=== PATIENT | female | born 1945 | race Caucasian/White ===

== ENCOUNTER 2016-04-16 12:57 | Outpatient (CLI) | payer MEDICARE, BC | END 2016-04-16 12:58 | disposition home or self-care (01) | DX: R00.2 Palpitations (principal) ==

== ENCOUNTER 2016-06-09 13:21 | Outpatient (CLI) | payer MEDICARE, BC | END 2016-06-09 13:22 | disposition home or self-care (01) | DX: R07.9 Chest pain, unspecified (principal); R93.1 Abnormal findings on diagnostic imaging of heart and coronary circulation | CPT/HCPCS: 78452; 93017; A9500 ==

== ENCOUNTER 2016-08-05 15:44 | Outpatient (CLI) | payer MEDICARE, BC | END 2016-08-05 15:45 | disposition home or self-care (01) | DX: M19.072 Primary osteoarthritis, left ankle and foot (principal); M19.071 Primary osteoarthritis, right ankle and foot ==

== ENCOUNTER 2016-08-26 08:11 | Outpatient (CLI) | payer MEDICARE, BC ==
[2016-08-26 09:08] LABS: CHOL/HDL RATIO 3.2 (<4.4); CHOLESTEROL 144 mg/dL; HDL CHOLESTEROL 45 mg/dL; LDL/HDL RATIO 1.8 (<4.4); TRIGLYCERIDES 91 mg/dL; VLDL CHOLESTEROL 18 mg/dL
== END 2016-08-26 08:12 | disposition home or self-care (01) ==
LOC: LAB 08:11
PROVIDERS: ATTEND Internal Medicine
DX: E78.5 Hyperlipidemia, unspecified (principal)
CPT/HCPCS: 36415; 80061; 84450; 84460

== ENCOUNTER 2017-02-27 11:44 | Outpatient (CLI) | payer MEDICARE, BC ==
--- NOTE | 2017-02-27 14:29 | XRAY Report ---
LEFT HIP AND PELVIS: 02/27/2017 CLINICAL INDICATION: Pain. FINDINGS: Frontal view of the hips and pelvis and frogleg lateral view of the left hip demonstrate m ild left hip osteoarthritis. A right hip replacement is noted in place. Degenerative changes are seen in the sacroiliac joints and there is ossific fusion of the transverse processes of L5 to the iliac crest. IMPRESSION: MILD LEFT HIP OSTEOARTHRITIS. JOB #: [id number] EXT JOB #:[id number]
== END 2017-02-27 11:45 | disposition home or self-care (01) ==
LOC: DI 11:44
PROVIDERS: ATTEND Internal Medicine
DX: M16.12 Unilateral primary osteoarthritis, left hip (principal)

== ENCOUNTER 2017-04-12 15:08 | Outpatient (CLI) | payer MEDICARE, BC ==
--- NOTE | 2017-04-14 10:25 | Mammography Report ---
DATE OF SERVICE: 04/12/2017 DIGITAL SCREENING MAMMOGRAM: 04/12/2017 CLINICAL INDICATION: A 71-year-old with history of benign biopsy, for screening. COMPARISON: 02/2016, 01/2015, 01/2014, 12/2013, 10/2012, 09/2010. TECHNIQUE: Routine CC and MLO projections were obtained of the breasts. FINDINGS: Parenchymal tissue within the breasts is predominantly fatty replaced. There are no dominant masses, suspicious microcalcifications, or secondary signs of malignancy. In comparison to the previous studies, there are no significant changes. IMPRESSION: NO MAMMOGRAPHIC EVIDENCE OF MALIGNANCY. NO SIGNIFICANT INTERVAL CHANGES. RECOMMENDATION: Screening mammography is recommended annually. BIRADS category 1 - negative. STANDARD QUALIFYING STATEMENTS: 1. This examination was reviewed with the aid of Computed-Aided Detection (CAD). 2. A negative or benign imaging report should not delay biopsy if clinically suspicious findings are present. Consider surgical consultation if warranted. More than 5% of cancers are not identified by imaging. 3. Dense breasts may obscure an underlying neoplasm. TD: 04/14/2017 11:24
== END 2017-04-12 15:09 | disposition home or self-care (01) ==
LOC: DI 15:08
PROVIDERS: ATTEND Internal Medicine
DX: Z12.31 Encounter for screening mammogram for malignant neoplasm of breast (principal)
CPT/HCPCS: 77067

== ENCOUNTER 2018-06-22 07:59 | Outpatient (CLI) | payer MEDICARE, BC ==
--- NOTE | 2018-06-22 10:47 | Mammography Report ---
Reason: SCREENING MAMMO Procedure Date: 06/22/2018 Accession Number: [id number] / [id number] Procedure: LAKESHIA - Screening Mammo w/Tano CPT Code: FULL RESULT: EXAM: Screening Mammo w/Tano DATE: 06/22/2018 8:35 AM CLINICAL HISTORY: Routine screening. No reported personal history of breast cancer. Family history breast cancer in an aunt in her 80s. TECHNIQUE: Bilateral CC and MLO views were obtained. COMPARISON: 04/12/2017 through 01/15/2015 FINDINGS: The breasts demonstrate scattered fibroglandular densities bilaterally. Bilateral breasts: There are no suspicious masses, calcifications or areas of distortion. IMPRESSION: Negative examination RECOMMENDATION: Routine annual screening unless otherwise clinically indicated. BI-RADS CATEGORY 1: Negative STANDARD QUALIFYING STATEMENTS: 1. This examination was not reviewed with the aid of Computer-Aided Detection (CAD). 2. A negative or benign imaging report should not preclude biopsy if clinically suspicious findings are present. 3. Dense breasts may obscure an underlying neoplasm. 4. This examination was reviewed with the aid of 3D breast imaging (tomosynthesis).
== END 2018-06-22 08:00 | disposition home or self-care (01) ==
LOC: DI 07:59
PROVIDERS: ATTEND Internal Medicine
DX: Z12.31 Encounter for screening mammogram for malignant neoplasm of breast (principal); Z80.3 Family history of malignant neoplasm of breast
CPT/HCPCS: 77063; 77067

== ENCOUNTER 2019-05-14 07:31 | Outpatient (CLI) | payer MEDICARE, BC ==
[2019-05-14 08:12] LABS: BASOPHILS # (AUTO) 0.1 10^3/uL (0.0-0.1); BASOPHILS % (AUTO) 0.9 %; EOSINOPHILS # (AUTO) 0.2 10^3/uL (0.0-0.7); EOSINOPHILS % (AUTO) 3.8 %; HGB - HEMOGLOBIN 14.3 g/dL (12.0-16.0); LYMPHOCYTES # (AUTO) 1.7 10^3/uL (1.5-3.5); LYMPHOCYTES % (AUTO) 27.3 %; MEAN CORPUSCULAR HEMOGLOBIN 29.7 pg (27.0-31.0); MEAN CORPUSCULAR HGB CONC 31.8 g/dL (32.0-36.0); MEAN CORPUSCULAR VOLUME 93.2 fL (81.0-99.0); MEAN PLATELET VOLUME 9.8 fL (7.9-10.8); MONOCYTES # (AUTO) 0.6 10^3/uL (0.0-1.0); MONOCYTES % (AUTO) 9.4 %; NEUTROPHILS # (AUTO) 3.7 10^3/uL (1.5-6.6); NEUTROPHILS % (AUTO) 58.3 %; PLT - PLATELET COUNT 299 10^3/uL (130-450); RED BLOOD COUNT 4.82 10^6/uL (4.20-5.40); RED CELL DISTRIBUTION WIDTH 12.9 % (12.0-15.0); WHITE BLOOD COUNT 6.4 x10^3/uL (4.8-10.8)
[2019-05-14 08:20] LABS: ALBUMIN/GLOBULIN RATIO 1.2 (1.0-2.2); ALKALINE PHOSPHATASE 58 IU/L (42-121); ALT ALANINE AMINOTRANSFERASE 30 IU/L (10-60); AST ASPARTATE AMINOTRANSFERASE 23 IU/L (10-42); BILIRUBIN,TOTAL 0.6 mg/dL (0.2-1.0); BUN - BLOOD UREA NITROGEN 15 mg/dL (6-20); CALCIUM 9.4 mg/dL (8.5-10.3); CARBON DIOXIDE - CO2 25 mmol/L (21-32); CHLORIDE 102 mmol/L (101-111); CHOLESTEROL 160 mg/dL; CREATININE 0.7 mg/dL (0.4-1.0); GFR - MDRD 82 (>89); GLUCOSE 107 mg/dL (70-100); HDL CHOLESTEROL 54 mg/dL; LDL CHOLESTEROL,CALCULATED 89 mg/dL; LDL/HDL RATIO 1.6 (<4.4); SODIUM 138 mmol/L (135-145); TOTAL PROTEIN 7.3 g/dL (6.7-8.2); VLDL CHOLESTEROL 17 mg/dL
[2019-05-14 08:59] LABS: T4 (THYROXINE) 6.87 ug/dL (6.09-12.23)
[2019-05-14 09:09] LABS: TOTAL T3 1.03 ng/mL (0.87-1.78)
== END 2019-05-14 07:32 | disposition home or self-care (01) ==
LOC: LAB 07:31
PROVIDERS: ATTEND Nurse Practitioner
DX: Z78.0 Asymptomatic menopausal state (principal); Z90.710 Acquired absence of both cervix and uterus; Z79.01 Long term (current) use of anticoagulants; I10 Essential (primary) hypertension; E78.5 Hyperlipidemia, unspecified; I48.91 Unspecified atrial fibrillation; J45.909 Unspecified asthma, uncomplicated; R53.83 Other fatigue; L65.9 Nonscarring hair loss, unspecified
CPT/HCPCS: 36415; 80053; 80061; 82306; 83721; 84436; 84443; 84480; 85025

== ENCOUNTER 2019-10-25 12:53 | Day surgery (SDC) | payer MEDICARE, BC ==
[2019-10-25] MEDS ORDERED: fentaNYL 250 MCG/5 ML VIAL IVP ONE ×2 (12:54)
[2019-10-25] MEDS ORDERED: MIDAZOLAM 2 MG/2 ML VIAL IVP ONE ×2 (12:54)
[2019-10-25] MEDS ORDERED: LACTATED RINGERS 1,000 ML IV ONE (13:02)
[2019-10-25 16:42] VITALS: BP 132/69
== END 2019-10-25 12:54 | disposition home or self-care (01) ==
LOC: SDS 12:53
PROVIDERS: ATTEND Surgery
PROC: 0DBL8ZZ Excision of Transverse Colon, Via Natural or Artificial Opening Endoscopic (ICD-10-PCS; principal; 2019-10-25 13:45)
DX: Z12.11 Encounter for screening for malignant neoplasm of colon (principal); D12.3 Benign neoplasm of transverse colon; K57.30 Diverticulosis of large intestine without perforation or abscess without bleeding; I10 Essential (primary) hypertension; G47.30 Sleep apnea, unspecified
CPT/HCPCS: 45385; J3010; J7120

== ENCOUNTER 2019-12-10 13:11 | Outpatient (CLI) | payer MEDICARE, BC ==
--- NOTE | 2019-12-10 13:14 | XRAY Report ---
PROCEDURE: Tib/Fib LT INDICATIONS: LEFT LEG PAIN TECHNIQUE: 2 views of the tibia and fibula were acquired. COMPARISON: None. FINDINGS: Bones: No acute fractures or dislocations. No suspicious bony lesions. Soft tissues: No suspicious soft tissue calcifications or masses. Serpiginous soft tissue densities in the superficial left lower leg likely represent varicosities. No radiographic abnormalities under lying the skin BB marker over the anterior mid tibia. IMPRESSION: Left tibia/fibula without acute radiographic abnormalities. Reviewed by: Parminder Espinoza MD on 12/10/2019 1:12 PM PDT Approved by: Parminder Espinoza MD on 12/10/2019 1:12 PM PDT Station ID: [id number]
== END 2019-12-10 23:59 | disposition home or self-care (01) ==
LOC: DI.WCP 13:11
PROVIDERS: ATTEND Nurse Practitioner
DX: M79.605 Pain in left leg (principal)

== ENCOUNTER 2020-05-29 11:04 | Outpatient (CLI) | payer MEDICARE, BC ==
--- NOTE | 2020-05-29 17:00 | DEXA Report ---
PROCEDURE: Dexa Spine and/or Hip INDICATIONS: POST MENOPAUSAL TECHNIQUE: Dual energy x-ray absorptiometry (DXA) was performed on a [employer] System. Regions measur ed are the AP Spine, femoral neck, and if needed forearm. COMPARISON: Dexa, 02/19/2016.. FINDINGS: Lumbar Spine: Bone Mineral Density 1.657 g/cm/cm,T score 4.0. Left forearm: Bone Mineral Density 0.678 g/cm/cm, T score 0.1. (T score greater or equal to -1.0: NORMAL) (T score from -1.1 to -2.4: OSTEOPENIA) (T score less than or equal to -2.5 to: OSTEOPOROSIS) Impression: 1. Based on WHO criteria, the patient bone mineral density is normal. 2. Increased T score and lumbar spine may be partially due to degenerative changes. Recommend radiogr aphic correlation. Patients with diagnosis of osteoporosis or osteopenia should have regular bone mineral density assess ment. For those eligible for Medicare, routine testing is allowed once every 2 years. Testing frequ ency can be increased for patients who have rapidly progressing disease or for those who are receivin g medical therapy to restore bone mass. Reviewed by: Cesar Faulkner MD on 05/29/2020 4:59 PM PST Approved by: Cesar Faulkner MD on 05/29/2020 4:59 PM PST Station ID: [id number]
== END 2020-05-29 11:05 | disposition home or self-care (01) ==
LOC: DI 11:04
PROVIDERS: ATTEND Nurse Practitioner
DX: Z78.0 Asymptomatic menopausal state (principal)

== ENCOUNTER 2020-07-24 08:32 | Outpatient (CLI) | payer MEDICARE, BC ==
--- NOTE | 2020-07-24 09:36 | Mammography Report ---
BILATERAL DIGITAL SCREENING MAMMOGRAM 3D/2D: 07/24/2020 CLINICAL: Routine screening. Comparison is made to exams dated: 06/22/2018 mammogram, 04/12/2017 mammogram, 02/19/2016 mammogram, 1 mammogram - [facility], and 01/16/[address] - [facility]. There are scattered fibroglandular elements in both breasts. There is a new 5 mm oval high density asymmetry in the left breast at 2 o'clock posterior depth. No other significant masses, calcifications, or other findings are seen in either breast. IMPRESSION: INCOMPLETE: NEEDS ADDITIONAL IMAGING EVALUATION The new 5 mm oval high density asymmetry in the left breast is indeterminate. Additional views with possible ultrasound are recommended. This exam was interpreted at Station ID: [id number]. NOTE: For mammograms, a report in lay terms will be sent to the patient. Approximately 15% of breast malignancies will not be visualized mammographically. In the management of a palpable breast mass, a negative mammogram must not discourage biopsy of a clinically suspicious lesion. Electronically Signed By: Myranda tom/aruna:07/24/2020 09:25:56 ACR BI-RADS Category 0: Incomplete 3340F PARENCHYMAL PATTERN: (A) - The breast(s) demonstrate(s) scattered fibroglandular densities. BI-RADS CATEGORY: (0) - 0 Mammo and [place] [id number] Immediate follow-up LATERALITY: (B)
== END 2020-07-24 08:33 | disposition home or self-care (01) ==
LOC: DI 08:32
PROVIDERS: ATTEND Physician Assistant Medical
DX: Z12.31 Encounter for screening mammogram for malignant neoplasm of breast (principal); R92.8 Other abnormal and inconclusive findings on diagnostic imaging of breast

== ENCOUNTER 2020-08-07 09:03 | Emergency (ER) | payer MEDICARE, BC ==
--- NOTE | 2020-08-07 09:13 | ED Physician Documentation ---
PD HPI HEENT - Stated complaint Stated Complaint: NOSE BLEED - Chief complaint Chief Complaint: Heent - History obtained from History obtained from: Patient - History of Present Illness Timing - onset: How many hours ago (2), Today Timing - duration: Hours (2) Timing - details: Abrupt onset, Still present, Waxing and waning (improved with pinching but then starts again when let go.) Location: Nose (left anterior nose bleeding. No noted injury/congestion.) Associated symptoms: No: Fever, Congestion, Swollen nodes Similar symptoms before: Diagnosis (has had this nostril bleed intermittently the past month. Was seen in other ER with rhinorocket placed and removed after couple days. brief bleeding at times otherwise. Then with notable bleeding today.) Recently seen: Not recently seen Review of Systems Constitutional: denies: Fever, Chills Nose: denies: Rhinorrhea / runny nose, Congestion Throat: denies: Sore throat Respiratory: denies: Cough GI: denies: Nausea, Vomiting, Bloody / black stool Skin: denies: Rash, Lesions PD PAST MEDICAL HISTORY - Past Medical History Cardiovascular: Hypertension, Arrhythmia Respiratory: Asthma, Pneumonia, Sleep apnea, CPAP use Endocrine/Autoimmune: None GI: Cholelithiasis : None HEENT: Chronic vision loss, Chronic hearing loss Psych: Claustrophobia Musculoskeletal: Osteoarthritis Derm: None - Past Surgical History Past Surgical History: Yes General: Cholecystectomy, Colonoscopy Ortho: Hip replacement, Knee replacement, Other /CORE CUTTER: Hysterectomy HEENT: Tonsil/Adenoidectomy - Present Medications Home Medications: Ambulatory Orders Medication Instructions Recorded Confirmed Albuterol Sulfate [Proair Hfa 2 puffs INH Q6HR PRN 03/11/16 10/25/19 Inhaler] Aspirin 81 mg PO DAILY 03/11/16 10/25/19 Fluticasone/Salmeterol [Advair 1 puffs INH BID 03/11/16 10/25/19 100-50 Diskus] Montelukast [Singulair] 1 tab PO DAILY 03/11/16 10/25/19 Atorvastatin [Lipitor] 10 mg PO DAILY 10/25/19 10/25/19 Calcium Carbonate/Vitamin D3 2 tab PO DAILY 10/25/19 10/25/19 [Calcium 500-Vit D3 200 Tablet] Celecoxib 200 mg PO DAILY PRN 10/25/19 10/25/19 Gabapentin 300 mg PO DAILY 10/25/19 10/25/19 Multivitamin 1 tab PO DAILY 10/25/19 10/25/19 Olmesartan Medoxomil 40 mg PO DAILY 10/25/19 10/25/19 Progesterone, Micronized 100 mg PO DAILY 10/25/19 10/25/19 [Progesterone] diltiaZEM CD [Cardizem Cd] 120 mg PO DAILY 10/25/19 10/25/19 - Allergies Allergies/Adverse Reactions: Allergies Allergy/AdvReac Type Severity Reaction Status Date / Time hydrocodone AdvReac Dizziness Verified 08/07/20 09:13 oxycodone AdvReac Dizziness Verified 08/07/20 09:13 - Social History Does the pt smoke?: No Smoking Status: Never smoker Does the pt drink ETOH?: Yes Does the pt have substance abuse?: No - Immunizations Immunizations are current?: Yes - POLST Patient has POLST: No PD ED PE NORMAL - Vitals Vital signs reviewed: Yes - General General: Alert and oriented X 3, No acute distress, Well developed/nourished - HEENT HEENT: Pharynx benign (no noted bleeding down back of throat. ), Other (There is some trickle bleeding red blood left nostril when pinching released. left anterior medial wall with spot of vascular inflammation and bleeding. No ulceration. ) - Neck Neck: Supple, no meningeal sign, No adenopathy - Cardiac Cardiac: RRR, No murmur - Respiratory Respiratory: Clear bilaterally - Derm Derm: Normal color, Warm and dry - Extremities Extremities: Normal ROM s pain - Neuro Neuro: Alert and oriented X 3, No motor deficit, Normal speech Results - Vitals Vitals: Vital Signs - 24 hr 08/07/20 08/07/20 09:07 10:54 Temperature 36.2 C L Heart Rate 90 74 Respiratory 18 16 Rate Blood Pressure 184/104 H 151/90 H O2 Saturation 96 97 Oxygen O2 Source Room air Procedures - Epistaxis Site: Left, Anterior Preparation: Clots removed, Neosynephrine, Clamp / pressure applied, Other (TXA) Treatment: Silver Nitrate, Packing inserted Other: Observed - no bleeding, Pt tolerated well, Referred to ENT PD MEDICAL DECISION MAKING - ED course Complexity details: re-evaluated patient (bleeding stopped and has not restarted. ), considered differential, d/w patient Departure - Departure Disposition: 01 Home, Self Care Clinical Impression: Acute anterior epistaxis Condition: Stable Record reviewed to determine appropriate education?: Yes Instructions: ED Nosebleed Follow-Up: Scarlett Wood PA-C [Primary Care Provider] - [facility] [Provider Group] Comments: Leave the foam packing in the nostril for a day or 2 as tolerated. At least today would be great. If you get some bleeding from that nostril, spirits with the oxymetazoline own and pinch the nose for 15 minutes or so. Return if persistent bleeding despite that. Otherwise remove the packing in a day or 2. It could be good to follow-up with ear nose and throat for reexamination of the area and see if there is any more treatment potential given your recurrences that you have had. Discharge Date/Time: 08/07/20 11:07
[2020-08-07] MEDS ORDERED: OXYMETAZOLINE HCL 100 SPRAYS BOTTLE NAS STA (09:14)
[2020-08-07] MEDS ORDERED: TRANEXAMIC ACID 1,000 MG/10 ML VIAL NAS STA (09:20)
[2020-08-07] MEDS ORDERED: SILVER NITRATE APPLICATOR TOP STA (10:03)
[2020-08-07 10:55] VITALS: BP 151/90
== END 2020-08-07 11:07 | disposition home or self-care (01) ==
LOC: ED 09:03
DX: R04.0 Epistaxis (principal)
CPT/HCPCS: 30901; 99282; A9270

== ENCOUNTER 2020-08-19 08:29 | Outpatient (CLI) | payer MEDICARE, BC ==
--- NOTE | 2020-08-20 13:41 | Mammography Report ---
UNILATERAL LEFT DIGITAL DIAGNOSTIC MAMMOGRAM 3D/2D: 08/19/2020 CLINICAL: Patient returns today to evaluate a focal asymmetry in the left breast. Comparison is made to exams dated: 07/24/2020 mammogram, 06/22/2018 mammogram, 04/12/2017 mammogram, mammogram, 01/15/2015 mammogram - [facility], and 01/16/2014 mammogram - [facility]. There are scattered fibroglandular elements in left breast. The benign 5 mm oval high density asymmetry in the left breast at 3 o'clock posterior depth is no oj karissa seen in additional views. No other significant masses or calcifications are seen in the breast. IMPRESSION: BENIGN There is no mammographic evidence of malignancy. Return to annual mammogram screening schedule is rec ommended. This exam was interpreted at Station ID: [id number]. NOTE: For mammograms, a report in lay terms will be sent to the patient. Approximately 15% of breast malignancies will not be visualized mammographically. In the management of a palpable breast mass, a negative mammogram must not discourage biopsy of a clinically suspicious lesion. Electronically Signed By: Isai Bell acr/:08/19/2020 09:13:47 ACR BI-RADS Category 2: Benign Finding(s) 3342F PARENCHYMAL PATTERN: (A) - The breast(s) demonstrate(s) scattered fibroglandular densities. BI-RADS CATEGORY: (2) - 2 Mammogram [id number] return to screening LATERALITY: (B)
== END 2020-08-19 08:30 | disposition home or self-care (01) ==
LOC: DI 08:29
PROVIDERS: ATTEND Physician Assistant Medical
DX: R92.8 Other abnormal and inconclusive findings on diagnostic imaging of breast (principal)

== ENCOUNTER 2020-11-30 15:46 | Outpatient (CLI) | payer MEDICARE, BC | END 2020-11-30 15:47 | disposition home or self-care (01) | LOC: LAB 15:46 | PROVIDERS: ATTEND Nurse Practitioner Family | DX: N95.1 Menopausal and female climacteric states (principal); Z79.890 Hormone replacement therapy | CPT/HCPCS: 84144 ==

== ENCOUNTER 2021-05-14 07:35 | Outpatient (CLI) | payer MEDICARE, BC ==
[2021-05-14 08:09] LABS: BASOPHILS % (AUTO) 0.5 %; EOSINOPHILS % (AUTO) 0.3 %; HGB - HEMOGLOBIN 13.1 g/dL (12.0-16.0); LYMPHOCYTES # (AUTO) 1.8 10^3/uL (1.5-3.5); LYMPHOCYTES % (AUTO) 22.7 %; MEAN CORPUSCULAR HEMOGLOBIN 30.4 pg (27.0-31.0); MEAN CORPUSCULAR HGB CONC 32.8 g/dL (32.0-36.0); MEAN CORPUSCULAR VOLUME 92.8 fL (81.0-99.0); MEAN PLATELET VOLUME 9.6 fL (7.9-10.8); MONOCYTES # (AUTO) 0.7 10^3/uL (0.0-1.0); MONOCYTES % (AUTO) 8.6 %; NEUTROPHILS # (AUTO) 5.4 10^3/uL (1.5-6.6); NEUTROPHILS % (AUTO) 67.6 %; PLT - PLATELET COUNT 261 10^3/uL (130-450); RED BLOOD COUNT 4.31 10^6/uL (4.20-5.40); RED CELL DISTRIBUTION WIDTH 12.4 % (12.0-15.0)
[2021-05-14 08:27] LABS: ALBUMIN 3.9 g/dL (3.2-5.5); ALBUMIN/GLOBULIN RATIO 1.3 (1.0-2.2); ALKALINE PHOSPHATASE 47 IU/L (42-121); ALT ALANINE AMINOTRANSFERASE 20 IU/L (10-60); AST ASPARTATE AMINOTRANSFERASE 19 IU/L (10-42); BILIRUBIN,TOTAL 0.6 mg/dL (0.2-1.0); BUN - BLOOD UREA NITROGEN 16 mg/dL (6-20); CALCIUM 9.7 mg/dL (8.5-10.3); CARBON DIOXIDE - CO2 27 mmol/L (21-32); CHLORIDE 100 mmol/L (101-111); CHOL/HDL RATIO 2.4 (<4.4); CHOLESTEROL 134 mg/dL; CREATININE 0.7 mg/dL (0.4-1.0); GFR - MDRD 82 (>89); GLUCOSE 84 mg/dL (70-100); HDL CHOLESTEROL 55 mg/dL; LDL CHOLESTEROL,CALCULATED 66 mg/dL; LDL/HDL RATIO 1.2 (<4.4); POTASSIUM 3.7 mmol/L (3.5-5.0); SODIUM 137 mmol/L (135-145); TOTAL PROTEIN 6.8 g/dL (6.7-8.2); TRIGLYCERIDES 65 mg/dL; VLDL CHOLESTEROL 13 mg/dL
[2021-05-14 08:37] LABS: THYROID STIMULATING HORMONE 1.46 uIU/mL (0.34-5.60)
== END 2021-05-14 07:36 | disposition home or self-care (01) ==
LOC: LAB 07:35
PROVIDERS: ATTEND Physician Assistant Medical
DX: E78.5 Hyperlipidemia, unspecified (principal); I48.91 Unspecified atrial fibrillation; I10 Essential (primary) hypertension
CPT/HCPCS: 36415; 80053; 80061; 83721; 84443; 85025

== ENCOUNTER 2021-05-25 14:16 | Outpatient (CLI) | payer MEDICARE, BC ==
--- NOTE | 2021-05-25 17:37 | XRAY Report ---
PROCEDURE: Lumbar Spine 2 View INDICATIONS: SHOULER IMPINGEMENT SYNDROME, RIGHT TECHNIQUE: 3 views of the lumbar spine were acquired. COMPARISON: None. FINDINGS: Bones: 5 [id number]-[id number] vertebrae are present. There is grade 1 anterolisthesis of L5 on S1. There is near complete disc space loss at L5-S1. No definite pars defect identified this level. Straighteni ng of normal lumbar lordosis. Advanced multilevel lumbar spondylosis with significant disc space loss , degenerative endplate changes, and endplate osteophytes from L2-3 through L5-S1. Associated facet a rthropathy. Moderate degenerative changes at the thoracolumbar junction. No acute vertebral body comp ression fractures. No suspicious bony lesions. Status post right hip arthroplasty. Soft tissues: Overlying bowel gas pattern is normal. No suspicious soft tissue calcifications. IMPRESSION: Lumbar spine without acute osseous abnormalities. No acute compression fractures. Advanced multilevel lumbar spondylosis most severe from L2-3 through L5-S1 with grade 1 anterolisthes is of L5 on S1. No definite pars defect identified. Reviewed by: Parminder Espinoza MD on 05/25/2021 5:36 PM PST Approved by: Parminder Espinoza MD on 05/25/2021 5:36 PM PST Station ID: [id number]
--- NOTE | 2021-05-25 17:39 | XRAY Report ---
PROCEDURE: Shoulder 3 View RT INDICATIONS: SHOULER IMPINGEMENT SYNDROME, RIGHT TECHNIQUE: 3 views of the shoulder were acquired. COMPARISON: None. FINDINGS: Bones: No acute fractures or dislocations. Moderate hypertrophic osteoarthrosis of the right acromi oclavicular joint. Coracoclavicular and acromioclavicular intervals are maintained. No suspicious bon y lesions. Visualized ribs appear intact. Soft tissues: No suspicious soft tissue calcifications. IMPRESSION: Right shoulder without acute fracture or dislocation. Moderate hypertrophic osteoarthros is of the right acromioclavicular joint. Reviewed by: Parminder Espinoza MD on 05/25/2021 5:37 PM PST Approved by: Parminder Espinoza MD on 05/25/2021 5:37 PM [facility] Station ID: [id number]
== END 2021-05-25 14:17 | disposition home or self-care (01) ==
LOC: DI 14:16
PROVIDERS: ATTEND Physician Assistant Medical
DX: M19.011 Primary osteoarthritis, right shoulder (principal); M47.816 Spondylosis without myelopathy or radiculopathy, lumbar region; M47.817 Spondylosis without myelopathy or radiculopathy, lumbosacral region; M43.17 Spondylolisthesis, lumbosacral region

== ENCOUNTER 2021-09-16 09:51 | Outpatient (CLI) | payer MEDICARE, BC ==
--- NOTE | 2021-09-17 08:53 | Mammography Report ---
BILATERAL DIGITAL SCREENING MAMMOGRAM 3D/2D: 09/16/2021 CLINICAL: Routine screening. Comparison is made to exams dated: 08/19/2020 mammogram, 07/24/2020 mammogram, 06/22/2018 mammogram, an d 04/12/2017 mammogram - Located within [facility]. There are scattered fibroglandular elements in both breasts. No significant masses, calcifications, or other findings are seen in either breast. There has been no significant interval change. IMPRESSION: NEGATIVE There is no mammographic evidence of malignancy. A 1 year screening mammogram is recommended. This exam was interpreted at Station ID: [id number]. NOTE: For mammograms, a report in lay terms will be sent to the patient. Approximately 15% of breast malignancies will not be visualized mammographically. In the management of a palpable breast mass, a negative mammogram must not discourage biopsy of a clinically suspicious lesion. Electronically Signed By: Paul Llanos M.D. ar/penrad:09/16/2021 11:59:40 ACR BI-RADS Category 1: Negative 3341F PARENCHYMAL PATTERN: (A) - The breast(s) demonstrate(s) scattered fibroglandular densities. BI-RADS CATEGORY: (1) - 1 RECOMMENDATION: (ANNUAL) - Recommend routine annual screening mammography. [id number] 1 year screening LATERALITY: (B)
== END 2021-09-16 09:52 | disposition home or self-care (01) ==
LOC: DI 09:51
DX: Z12.31 Encounter for screening mammogram for malignant neoplasm of breast (principal)

== ENCOUNTER 2022-06-24 07:46 | Outpatient (CLI) | payer MEDICARE, BC ==
[2022-06-24 08:12] LABS: ALBUMIN 4.1 g/dL (3.2-5.5); ALBUMIN/GLOBULIN RATIO 1.4 (1.0-2.2); ALKALINE PHOSPHATASE 62 IU/L (42-121); ALT ALANINE AMINOTRANSFERASE 22 IU/L (10-60); AST ASPARTATE AMINOTRANSFERASE 21 IU/L (10-42); BILIRUBIN,TOTAL 0.6 mg/dL (0.2-1.0); BUN - BLOOD UREA NITROGEN 13 mg/dL (6-20); CALCIUM 9.5 mg/dL (8.5-10.3); CARBON DIOXIDE - CO2 28 mmol/L (21-32); CHLORIDE 104 mmol/L (101-111); CHOL/HDL RATIO 2.4 (<4.4); CHOLESTEROL 154 mg/dL; CREATININE 0.8 mg/dL (0.4-1.0); GFR - MDRD 70 (>89); GLUCOSE 108 mg/dL (70-100); HDL CHOLESTEROL 63 mg/dL; LDL CHOLESTEROL,CALCULATED 79 mg/dL; LDL/HDL RATIO 1.3 (<4.4); POTASSIUM 3.9 mmol/L (3.5-5.0); SODIUM 140 mmol/L (135-145); TOTAL PROTEIN 7.1 g/dL (6.7-8.2); TRIGLYCERIDES 60 mg/dL; VLDL CHOLESTEROL 12 mg/dL
== END 2022-06-24 07:47 | disposition home or self-care (01) ==
LOC: LAB 07:46
PROVIDERS: ATTEND Physician Assistant Medical
DX: E78.5 Hyperlipidemia, unspecified (principal)
CPT/HCPCS: 36415; 80053; 80061; 83721

== ENCOUNTER 2022-07-14 09:26 | Outpatient (CLI) | payer MEDICARE, BC ==
[2022-07-14 09:46] LABS: BASOPHILS # (AUTO) 0.1 10^3/uL (0.0-0.1); BASOPHILS % (AUTO) 0.7 %; EOSINOPHILS # (AUTO) 0.2 10^3/uL (0.0-0.7); HCT - HEMATOCRIT 43.1 % (37.0-47.0); HGB - HEMOGLOBIN 14.1 g/dL (12.0-16.0); LYMPHOCYTES # (AUTO) 1.5 10^3/uL (1.5-3.5); LYMPHOCYTES % (AUTO) 21.9 %; MEAN CORPUSCULAR HEMOGLOBIN 30.5 pg (27.0-31.0); MEAN CORPUSCULAR HGB CONC 32.7 g/dL (32.0-36.0); MEAN CORPUSCULAR VOLUME 93.3 fL (81.0-99.0); MONOCYTES # (AUTO) 0.7 10^3/uL (0.0-1.0); MONOCYTES % (AUTO) 10.7 %; NEUTROPHILS # (AUTO) 4.2 10^3/uL (1.5-6.6); NEUTROPHILS % (AUTO) 63.4 %; PLT - PLATELET COUNT 269 10^3/uL (130-450); RED BLOOD COUNT 4.62 10^6/uL (4.20-5.40); RED CELL DISTRIBUTION WIDTH 12.8 % (12.0-15.0); WHITE BLOOD COUNT 6.7 x10^3/uL (4.8-10.8)
[2022-07-14 10:05] LABS: ALBUMIN 4.1 g/dL (3.2-5.5); ALBUMIN/GLOBULIN RATIO 1.5 (1.0-2.2); ALKALINE PHOSPHATASE 63 IU/L (42-121); ALT ALANINE AMINOTRANSFERASE 21 IU/L (10-60); AST ASPARTATE AMINOTRANSFERASE 22 IU/L (10-42); BILIRUBIN,TOTAL 0.4 mg/dL (0.2-1.0); BUN - BLOOD UREA NITROGEN 13 mg/dL (6-20); CALCIUM 9.5 mg/dL (8.5-10.3); CARBON DIOXIDE - CO2 29 mmol/L (21-32); CHLORIDE 103 mmol/L (101-111); CREATININE 0.8 mg/dL (0.4-1.0); CRP - C-REACTIVE PROTEIN < 1.0 mg/dL (0-1.0); GFR - MDRD 70 (>89); GLUCOSE 106 mg/dL (70-100); SODIUM 138 mmol/L (135-145); TOTAL PROTEIN 6.8 g/dL (6.7-8.2)
[2022-07-14 10:17] LABS: THYROID STIMULATING HORMONE 1.61 uIU/mL (0.34-5.60)
[2022-07-14 10:19] LABS: FREE T4 (FREE THYROXINE) 0.76 ng/dL (0.58-1.64)
[2022-07-14 10:26] LABS: ESTIMATED AVERAGE GLUCOSE 123 mg/dL (70-100); HEMOGLOBIN A1c% 5.9 % (4.27-6.07)
== END 2022-07-14 09:27 | disposition home or self-care (01) ==
LOC: LAB 09:26
PROVIDERS: ATTEND Internal Medicine
DX: Z79.899 Other long term (current) drug therapy (principal); M15.4 Erosive (osteo)arthritis; R73.9 Hyperglycemia, unspecified; R53.83 Other fatigue
CPT/HCPCS: 36415; 80053; 83036; 84439; 84443; 85025; 86140

== ENCOUNTER 2022-09-06 14:04 | Outpatient (CLI) | payer MEDICARE, BC | END 2022-09-06 14:05 | disposition home or self-care (01) | LOC: MAC.MOP 14:04 | PROVIDERS: ATTEND Nurse Practitioner | DX: R00.2 Palpitations (principal) | CPT/HCPCS: 93242 ==

== ENCOUNTER 2022-09-17 11:00 | Outpatient (CLI) | payer MEDICARE, BC | END 2022-09-17 11:01 | disposition home or self-care (01) | LOC: MAC.INF 11:00 | PROVIDERS: ATTEND Nurse Practitioner | DX: I47.1 Supraventricular tachycardia (principal); I49.1 Atrial premature depolarization; I49.3 Ventricular premature depolarization | CPT/HCPCS: 93244 ==

== ENCOUNTER 2022-09-19 14:34 | Outpatient (CLI) | payer MEDICARE, BC ==
--- NOTE | 2022-09-20 10:36 | Mammography Report ---
BILATERAL DIGITAL SCREENING MAMMOGRAM 3D/2D: 09/19/2022 CLINICAL: Routine screening. Comparison is made to exams dated: 09/16/2021 mammogram, 08/19/2020 mammogram, 07/24/2020 mammogram, mammogram, 04/12/2017 mammogram, and 02/19/2016 mammogram - [facility]. There are scattered areas of fibroglandular density in both breasts (category b / 25%-50% glandular t issue). No significant masses, calcifications, or other findings are seen in either breast. There has been no significant interval change. IMPRESSION: NEGATIVE There is no mammographic evidence of malignancy. A 1 year screening mammogram is recommended. Based on the Tyrer Cuzick model (a risk assessment model) the patients lifetime risk is 3.0% and her 10 year risk is 2.7%. According to the ACR, ACS, and NCCN guidelines, an annual breast MRI exam miguel g with mammogram is recommended if the patients lifetime risk is 20% or greater. This exam was interpreted at Station ID: [id number]. NOTE: For mammograms, a report in lay terms will be sent to the patient. Approximately 15% of breast malignancies will not be visualized mammographically. In the management of a palpable breast mass, a negative mammogram must not discourage biopsy of a clinically suspicious lesion. Electronically Signed By: Myranda tom/aruna:09/19/2022 19:39:31 letter sent: No_Letter ACR BI-RADS Category 1: Negative 3341F PARENCHYMAL PATTERN: (A) - The breast(s) demonstrate(s) scattered fibroglandular densities. BI-RADS CATEGORY: (1) - 1 Mammogram [id number] 1 year screening LATERALITY: (B)
== END 2022-09-19 14:35 | disposition home or self-care (01) ==
LOC: DI 14:34
DX: Z12.31 Encounter for screening mammogram for malignant neoplasm of breast (principal)

== ENCOUNTER 2022-11-11 09:21 | Emergency (ER) | payer MEDICARE, BC ==
--- OUTSIDE RECORDS SUMMARY | 2022-11-11 10:05 | EXTERNAL MEDICAL SUMMARY RPT | Continuity of Care Document ---
Author Name Unknown Address [address] [place] [address] Phone Organization [facility] Address [address] [phone] Phone Care Team Providers Care Manager Market Intelligence Name Role Phone Isabelle Hill Unavailable Unavailable Results/Labs test date facility value unit notes Social History date description facility 2022-10-27 00:00 Never smoked tobacco ([facility]
--- NOTE | 2022-11-11 10:13 | XRAY Report ---
PROCEDURE: Chest 1 View X-Ray INDICATIONS: CP TECHNIQUE: One view of the chest was acquired. COMPARISON: None. FINDINGS: Surgical changes and devices: None. Lungs and pleura: No pleural effusions or pneumothorax. Patchy bibasilar atelectasis versus infiltra scott. Mediastinum: Mediastinal contours appear normal. Prominent bilateral pericardial fat pads. Possible cardiomegaly. Bones and chest wall: No suspicious bony lesions. Overlying soft tissues appear unremarkable. IMPRESSION: Patchy bibasilar atelectasis versus infiltrates. Reviewed by: Margarito Peralta MD on 11/11/2022 10:11 AM PDT Approved by: Margarito Peralta MD on 11/11/2022 10:11 AM PDT Station ID: [id number]
--- NOTE | 2022-11-11 10:26 | ED Physician Documentation ---
PD HPI CHEST PAIN - Stated complaint Stated Complaint: SOA,CHEST PX - Chief complaint Chief Complaint: Cardiac - History obtained from History obtained from: Patient - Additional information Additional information: Patient is a 77-year-old female presenting for evaluation of chest pain that has been present intermittently since Monday that feels like a heaviness in the middle of her chest. Since last night at times she has had episodes where it radiates to the right shoulder. She woke up pain-free this morning but it started around 745 and has since been constant. Pain is localized again to her chest currently. She was having coffee when the pain started. She denies other associated symptoms such as dizziness, shortness of air or abdominal symptoms. She reports swimming on Monday despite the pain with no issues and did not feel limited due to the pain. She reports having had similar episodes of pain like this in the past when she has been overly tired but it usually resolves after a good night sleep. She has recently traveled to [place] and [place]. She has a history of a DVT in the past related to postoperative course. She is not currently on a blood thinner. Denies history of [place]. She sees a enterprise sales executive in [facility] for history of irregular heartbeats and is on diltiazem for this.She denies a history of prior MIs, known CAD, family history of early coronary artery disease. Review of Systems Constitutional: denies: Fever Cardiac: reports: Chest pain / pressure Respiratory: denies: Dyspnea GI: denies: Abdominal Pain Neurologic: denies: Headache PD PAST MEDICAL HISTORY - Past Medical History Past Medical History: Yes Cardiovascular: Hypertension, Arrhythmia Respiratory: Asthma, Pneumonia, Sleep apnea, CPAP use Endocrine/Autoimmune: None GI: Cholelithiasis : None HEENT: Chronic vision loss, Chronic hearing loss Psych: Claustrophobia Musculoskeletal: Osteoarthritis Derm: None - Past Surgical History Past Surgical History: Yes General: Cholecystectomy, Colonoscopy Ortho: Hip replacement, Knee replacement, 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: Hysterectomy HEENT: Tonsil/Adenoidectomy - Present Medications Home Medications: Ambulatory Orders Medication Instructions Recorded Confirmed Albuterol Sulfate [Proair Hfa 2 puffs INH Q6HR PRN 03/11/16 10/25/19 Inhaler] Aspirin 81 mg PO DAILY 03/11/16 10/25/19 Fluticasone/Salmeterol [Advair 1 puffs INH BID 03/11/16 10/25/19 100-50 Diskus] Montelukast [Singulair] 1 tab PO DAILY 03/11/16 10/25/19 Atorvastatin [Lipitor] 10 mg PO DAILY 10/25/19 10/25/19 Calcium Carbonate/Vitamin D3 2 tab PO DAILY 10/25/19 10/25/19 [Calcium 500-Vit D3 200 Tablet] Celecoxib 200 mg PO DAILY PRN 10/25/19 10/25/19 Gabapentin 300 mg PO DAILY 10/25/19 10/25/19 Multivitamin 1 tab PO DAILY 10/25/19 10/25/19 Olmesartan Medoxomil 40 mg PO DAILY 10/25/19 10/25/19 Progesterone, Micronized 100 mg PO DAILY 10/25/19 10/25/19 [Progesterone] diltiaZEM CD [Cardizem Cd] 120 mg PO DAILY 10/25/19 10/25/19 - Allergies Allergies/Adverse Reactions: Allergies Allergy/AdvReac Type Severity Reaction Status Date / Time hydrocodone AdvReac Dizziness Verified 08/07/20 09:13 oxycodone AdvReac Dizziness Verified 08/07/20 09:13 - Social History Does the pt smoke?: No Smoking Status: Never smoker Does the pt drink ETOH?: Yes Does the pt have substance abuse?: No - Immunizations Immunizations are current?: Yes - POLST Patient has POLST: No PD ED PE NORMAL - General General: Alert and oriented X 3, No acute distress, Well developed/nourished - HEENT HEENT: Atraumatic - Neck Neck: Supple, no meningeal sign - Cardiac Cardiac: RRR, No murmur - Respiratory Respiratory: No respiratory distress, Clear bilaterally - Abdomen Abdomen: Soft, Non tender - Derm Derm: Warm and dry - Extremities Extremities: No edema, No calf tenderness / cord Results - Vitals Vitals: Vital Signs - 24 hr 11/11/22 11/11/22 11/11/22 09:30 10:13 12:32 Temperature 36.4 C L Heart Rate 73 61 58 L Respiratory 20 10 L 18 Rate Blood Pressure 155/74 H 174/68 H O2 Saturation 98 98 99 11/11/22 14:12 Temperature Heart Rate 57 L Respiratory 15 Rate Blood Pressure 154/80 H O2 Saturation 100 Oxygen O2 Source Room air - EKG (time done) 0932 EKG releavant findings:: EKG personally interpreted by author of this note. Relevant findings are: Rate 64, normal sinus rhythm, no STEMI, no ST depressions, Rate: Rate (enter#) (64) Rhythm: NSR Ischemia: No: ST elevation c/w ischemia - Labs Labs: Laboratory Tests 11/11/22 11/11/22 11/11/22 10:21 10:21 10:21 WBC 6.2 RBC 4.37 Hgb 13.4 Hct 40.3 MCV 92.2 MCH 30.7 MCHC 33.3 RDW 12.8 Plt Count 273 MPV 9.6 Neut # (Auto) 4.2 Lymph # (Auto) 1.2 L [place] # (Auto) 0.7 Eos # (Auto) 0.1 Baso # (Auto) 0.1 Absolute Nucleated RBC 0.00 Nucleated RBC % 0.0 D-Dimer Sodium 134 L Potassium 4.1 Chloride 101 Carbon Dioxide 29 Anion Gap 4.0 L BUN 17 Creatinine 0.8 Estimated GFR (MDRD) 70 L Glucose 86 Calcium 9.4 Total Bilirubin 0.5 AST 19 ALT 19 Alkaline Phosphatase 67 Troponin I High Sens 4.1 B-Natriuretic Peptide 65 Total Protein 6.4 Albumin 3.8 Globulin 2.6 Albumin/Globulin Ratio 1.5 Lipase 36 11/11/22 11/11/22 10:21 13:37 WBC RBC Hgb Hct MCV MCH MCHC RDW Plt Count MPV Neut # (Auto) Lymph # (Auto) [place] # (Auto) Eos # (Auto) Baso # (Auto) Absolute Nucleated RBC Nucleated RBC % D-Dimer 539.2 H Sodium Potassium Chloride Carbon Dioxide Anion Gap BUN Creatinine Estimated GFR (MDRD) Glucose Calcium Total Bilirubin AST ALT Alkaline Phosphatase Troponin I High Sens 4.8 B-Natriuretic Peptide Total Protein Albumin Globulin Albumin/Globulin Ratio Lipase PD Medical Decision Making - ED course Complexity details: reviewed results, re-evaluated patient, d/w patient ED course: Patient is a 77-year-old female presenting for evaluation of chest pain that has been present intermittently since Monday. This morning is been present for several hours with no worsening. Patient was able to swim a few days ago without any limitations related to the pain. She denies associated symptoms of shortness of air or abdominal complaints. Her EKG is reviewed without signs of acute ischemia. Labs obtained including CBC, chemistries, troponin and D-dimer. Patient has had recent travel. D-dimer is elevated even with age adjustment. X-ray was obtained which I reviewed without significant findings. Chest CT angio was obtained and is negative for pulmonary embolism or other acute lung pathology. Patient symptoms have improved here and she has been pain-free. High-sensitivity troponin has been negative x2 3 hours apart. Her heart score is a 4 but this is based on age and risk factors. She does have a enterprise sales executive she can follow-up with. At this time her symptoms do not suggest ACS. Also doubt dissection as symptoms are nonmigratory. Patient's symptoms again have improved here and she is counseled on need for close follow-up with her enterprise sales executive as well as concerning symptoms to return for. Departure - Departure Disposition: 01 Home, Self Care Clinical Impression: Chest pain Condition: Stable Instructions: ED Chest Pain Atypical Unkn Cause Follow-Up: Jett Aldana MD [Physician No Access] - Within 3 Days Comments: The exact cause for your chest pain at this time is unclear. We did obtain a CT scan to look for blood clot and this was negative. We also checked your blood test for signs of a heart attack and this was also normal. I would recommend close follow-up with your enterprise sales executive to determine if you need further evaluation or testing. If at anytime though you develop any new or worsening symptoms please return to the emergency department. Forms: PCP List Discharge Date/Time: 11/11/22 14:44
[2022-11-11 10:29] LABS: BASOPHILS # (AUTO) 0.1 10^3/uL (0.0-0.1); BASOPHILS % (AUTO) 0.8 %; EOSINOPHILS # (AUTO) 0.1 10^3/uL (0.0-0.7); EOSINOPHILS % (AUTO) 1.8 %; HCT - HEMATOCRIT 40.3 % (37.0-47.0); HGB - HEMOGLOBIN 13.4 g/dL (12.0-16.0); LYMPHOCYTES # (AUTO) 1.2 10^3/uL (1.5-3.5); LYMPHOCYTES % (AUTO) 18.8 %; MEAN CORPUSCULAR HEMOGLOBIN 30.7 pg (27.0-31.0); MEAN CORPUSCULAR HGB CONC 33.3 g/dL (32.0-36.0); MEAN CORPUSCULAR VOLUME 92.2 fL (81.0-99.0); MEAN PLATELET VOLUME 9.6 fL (7.9-10.8); MONOCYTES # (AUTO) 0.7 10^3/uL (0.0-1.0); MONOCYTES % (AUTO) 11.1 %; NEUTROPHILS # (AUTO) 4.2 10^3/uL (1.5-6.6); NEUTROPHILS % (AUTO) 67.2 %; PLT - PLATELET COUNT 273 10^3/uL (130-450); RED BLOOD COUNT 4.37 10^6/uL (4.20-5.40); RED CELL DISTRIBUTION WIDTH 12.8 % (12.0-15.0); WHITE BLOOD COUNT 6.2 x10^3/uL (4.8-10.8)
[2022-11-11 10:42] LABS: ALBUMIN 3.8 g/dL (3.2-5.5); ALBUMIN/GLOBULIN RATIO 1.5 (1.0-2.2); BILIRUBIN,TOTAL 0.5 mg/dL (0.2-1.0); CALCIUM 9.4 mg/dL (8.5-10.3); CREATININE 0.8 mg/dL (0.6-1.3); POTASSIUM 4.1 mmol/L (3.5-4.5); TOTAL PROTEIN 6.4 g/dL (6.4-8.9)
[2022-11-11 10:49] LABS: TROPONIN I HIGH SENSITIVITY 4.1 ng/L (2.3-14.8)
--- NOTE | 2022-11-11 12:50 | CT Report ---
PROCEDURE: ANGIO CHEST W/WO INDICATIONS: CP/abnormal ddimer CONTRAST: 100ml omni 300 TECHNIQUE: After the administration of intravenous contrast, 2 mm axial images were acquired from the pulmonary apices to the posterior costophrenic angles during the arterial phase. In addition, 1 mm lung kernel and 5 mm soft tissue kernel reconstructions were performed. 3-dimensional coronal oblique maximum int ensity projection (MIP) reformats, 8 mm axial MIP, and 5 mm coronal and sagittal MPR reformats were t hen performed through the thorax. For radiation dose reduction, the following was used: automated exp osure control, adjustment of mA and/or kV according to patient size. COMPARISON: None FINDINGS: Image quality: Excellent. Large vessels: No filling defects within the opacified pulmonary arteries, accounting for motion and contrast timing. No evidence of acute aortic syndrome or aortic aneurysm. Lungs and pleura: No consolidation. No pleural effusions. No pneumothorax. No suspicious pulmonary n odules which require follow up. Mediastinum: Heart size is normal. No pericardial effusion. No large vessel abnormality. No mediastin al adenopathy by size criteria. Chest wall and lower neck: Thyroid is unremarkable. No axillary or supraclavicular adenopathy by size . Bones: No aggressive osseous abnormality. Upper Abdomen: Unremarkable. IMPRESSION: 1. No acute pulmonary emboli. 2. No acute pulmonary process. Reviewed by: Margarito Peralta MD on 11/11/2022 12:49 PM PDT Approved by: Margarito Peralta MD on 11/11/2022 12:49 PM PDT Station ID: [id number]
[2022-11-11] MEDS ORDERED: iohexoL-300 100 ML VIAL IVP ONE (14:14)
[2022-11-11 14:18] VITALS: BP 154/80; O2SAT 100
== END 2022-11-11 14:44 | disposition home or self-care (01) ==
LOC: ED 09:21
DX: R07.9 Chest pain, unspecified (principal); I10 Essential (primary) hypertension
CPT/HCPCS: 36415; 71045; 71275; 80053; 83690; 83880; 84484; 85025; 85379; 93005; 99283; 99284; Q9967

== ENCOUNTER 2022-11-18 08:00 | Outpatient (CLI) | payer MEDICARE, BC ==
[2022-11-18 18:28] LABS: BILIRUBIN,URINE NEGATIVE (NEGATIVE); GLUCOSE, URINE (UA) NEGATIVE (NEGATIVE); KETONES,URINE (UA) NEGATIVE (NEGATIVE); LEUKOCYTE ESTERASE, URINE NEGATIVE (NEGATIVE); NITRITE,URINE NEGATIVE (NEGATIVE); OCCULT BLOOD,URINE NEGATIVE (NEGATIVE); PH,URINE 6.5 PH (5.0-7.5); PROTEIN,URINE NEGATIVE (NEGATIVE); UROBILINOGEN,URINE 0.2 (NORMAL) E.U./dL (NORMAL)
[2022-11-18 19:04] LABS: CLARITY,URINE CLEAR (CLEAR)
[2022-11-18 19:05] LABS: BACTERIA,URINE Rare /HPF (None Seen); RBC,URINE 0-5 /HPF (0-5); SQUAMOUS EPITHELIAL CELL,UR FEW Squamous (<= Few); WBC,URINE 0-3 /HPF (0-5)
== END 2022-11-18 23:59 | disposition home or self-care (01) ==
LOC: LAB 08:00
PROVIDERS: ATTEND Family Medicine
DX: R39.89 Other symptoms and signs involving the genitourinary system (principal)
CPT/HCPCS: 81001; 87086

== ENCOUNTER 2022-12-13 10:50 | Outpatient (CLI) | payer MEDICARE, BC ==
[2022-12-13 11:00] LABS: BASOPHILS # (AUTO) 0.1 10^3/uL (0.0-0.1); BASOPHILS % (AUTO) 0.4 %; EOSINOPHILS # (AUTO) 0.1 10^3/uL (0.0-0.7); HGB - HEMOGLOBIN 13.9 g/dL (12.0-16.0); LYMPHOCYTES # (AUTO) 1.4 10^3/uL (1.5-3.5); LYMPHOCYTES % (AUTO) 10.6 %; MEAN CORPUSCULAR HEMOGLOBIN 30.3 pg (27.0-31.0); MEAN CORPUSCULAR HGB CONC 32.3 g/dL (32.0-36.0); MEAN CORPUSCULAR VOLUME 93.9 fL (81.0-99.0); MEAN PLATELET VOLUME 9.2 fL (7.9-10.8); MONOCYTES % (AUTO) 7.6 %; NEUTROPHILS # (AUTO) 10.8 10^3/uL (1.5-6.6); NEUTROPHILS % (AUTO) 79.9 %; PLT - PLATELET COUNT 244 10^3/uL (130-450); RED BLOOD COUNT 4.58 10^6/uL (4.20-5.40); RED CELL DISTRIBUTION WIDTH 13.2 % (12.0-15.0); WHITE BLOOD COUNT 13.5 x10^3/uL (4.8-10.8)
[2022-12-13 11:13] LABS: ALBUMIN 4.1 g/dL (3.2-5.5); ALBUMIN/GLOBULIN RATIO 1.6 (1.0-2.2); BILIRUBIN,TOTAL 0.5 mg/dL (0.2-1.0); CALCIUM 9.9 mg/dL (8.5-10.3); CREATININE 0.8 mg/dL (0.6-1.3); CRP - C-REACTIVE PROTEIN 0.8 mg/dL (<0.5); POTASSIUM 4.1 mmol/L (3.5-4.5); TOTAL PROTEIN 6.6 g/dL (6.4-8.9)
== END 2022-12-13 10:51 | disposition home or self-care (01) ==
LOC: LAB 10:50
PROVIDERS: ATTEND Nurse Practitioner Family
DX: M15.4 Erosive (osteo)arthritis (principal); Z79.899 Other long term (current) drug therapy
CPT/HCPCS: 36415; 80053; 85025; 86140

== ENCOUNTER 2023-02-17 10:29 | Day surgery (SDC) | payer MEDICARE, BC ==
--- NOTE | 2023-02-17 10:59 | ANESTHESIA ---
Pre-Anesthesia VS, & Labs - Diagnosis screening - Procedure colonoscopy Height: 5 ft 6 in - NPO >8 hours - Is Patient ?: No - Lab Results Lab results reviewed: Yes Home Medications and Allergies Home Medications: Ambulatory Orders hydroCHLOROthiazide [Hydrodiuril] 12.5 mg PO DAILY 02/16/23 Albuterol Sulfate [Proair Hfa Inhaler] 2 puffs INH Q6HR PRN 03/11/16 Aspirin 81 mg PO DAILY 03/11/16 Fluticasone/Salmeterol [Advair 100-50 Diskus] 1 puffs INH BID 03/11/16 Montelukast [Singulair] 1 tab PO DAILY 03/11/16 Atorvastatin [Lipitor] 10 mg PO DAILY 10/25/19 Calcium Carbonate/Vitamin D3 [Calcium 500-Vit D3 200 Tablet] 2 tab PO DAILY 10/25/19 Celecoxib 200 mg PO DAILY PRN 10/25/19 Gabapentin 300 mg PO DAILY 10/25/19 Multivitamin 1 tab PO DAILY 10/25/19 Olmesartan Medoxomil 40 mg PO DAILY 10/25/19 diltiaZEM CD [Cardizem Cd] 120 mg PO DAILY 10/25/19 hydroCHLOROthiazide [Hydrodiuril] 12.5 mg PO DAILY 02/16/23 Allergies/Adverse Reactions: Allergies Allergy/AdvReac Type Severity Reaction Status Date / Time hydrocodone AdvReac Dizziness Verified 08/07/20 09:13 oxycodone AdvReac Dizziness Verified 08/07/20 09:13 Anes History & Medical History - Anesthetic History Anesthesia Complications: reports: No previous complications Family history of Anesthesia Complications: Denies Family history of Malignant Hyperthermia: Denies - Medical History Cardiovascular: reports: Hypertension, Arrhythmia Pulmonary: reports: Asthma, Pneumonia, Sleep apnea, CPAP use Gastrointestinal: reports: Cholelithiasis Urinary: reports: None Neuro: reports: None Musculoskeletal: reports: Osteoarthritis Endocrine/Autoimmune: reports: None Skin: reports: None Smoking Status: Never smoker Psychosocial: reports: No issues indicated - Surgical History General: reports: Cholecystectomy, Colonoscopy Eyes Ears Nose Throat (EENT): reports: Tonsil/Adenoidectomy Gynecologic: reports: Hysterectomy Orthopedic: reports: Hip replacement, Knee replacement, Other Exam General: Alert, Oriented x3, Cooperative Dental: WNL Mouth Openin Fingerbreadth Neck Mobility: Normal Mallampati classification: II Thyromental Distance: 4-6 cm Respiratory: Lungs clear Cardiovascular: Regular rate Plan Anesthesia Type: Total IV Consent for Procedure(s) Verified and Reviewed: Yes Code Status: Attempt Resuscitation ASA classification: 2-Mild systemic disease Is this case an emergency?: No
[2023-02-17] MEDS ORDERED: LACTATED RINGERS 1,000 ML IV ONE ×2 (11:08→12:27)
[2023-02-17] MEDS ORDERED: PROPOFOL 500 MG/50 ML 500 MG/50 ML VIAL ONE (11:30)
[2023-02-17] MEDS ORDERED: PROPOFOL 200 MG/20 ML VIAL IVP ONE ×2 (12:06→12:22)
[2023-02-17 12:40] VITALS: O2SAT 96
[2023-02-17 12:50] VITALS: BP 135/73
--- NOTE | 2023-02-17 14:03 | ANESTHESIA POST OP EVALUATION ---
Anesthesia Post Eval - Post Anesthesia Eval Vitals: Last Vital Signs Temp 36.3 C L 02/17/23 12:27 Pulse 71 02/17/23 12:46 Resp 15 02/17/23 12:46 BP 135/73 H 02/17/23 12:46 Pulse Ox 96 02/17/23 12:46 O2 Flow Rate CV Function Including HR & BP: Stable Pain Control: Satisfactory Nausea & Vomiting: Negative Mental Status: Baseline Respiratory Status: Airway Patent Hydration Status: Satisfactory Anesthesia Complications: None
== END 2023-02-17 10:30 | disposition home or self-care (01) ==
LOC: SDS 10:29
PROVIDERS: ATTEND Surgery
PROC: 0DBN8ZZ Excision of Sigmoid Colon, Via Natural or Artificial Opening Endoscopic (ICD-10-PCS; 2023-02-17)
PROC: 0DBM8ZZ Excision of Descending Colon, Via Natural or Artificial Opening Endoscopic (ICD-10-PCS; 2023-02-17)
PROC: 0DBK8ZZ Excision of Ascending Colon, Via Natural or Artificial Opening Endoscopic (ICD-10-PCS; principal; 2023-02-17 11:30)
DX: Z12.11 Encounter for screening for malignant neoplasm of colon (principal); D12.2 Benign neoplasm of ascending colon; D12.4 Benign neoplasm of descending colon; K63.5 Polyp of colon; K57.30 Diverticulosis of large intestine without perforation or abscess without bleeding; G47.30 Sleep apnea, unspecified; J45.909 Unspecified asthma, uncomplicated
CPT/HCPCS: 45380; 45385; J7120

== ENCOUNTER 2023-05-31 11:57 | Outpatient (CLI) | payer MEDICARE, BC ==
[2023-05-31 12:11] LABS: EOSINOPHILS # (AUTO) 0.2 10^3/uL (0.0-0.7); EOSINOPHILS % (AUTO) 3.9 %; HCT - HEMATOCRIT 39.9 % (37.0-47.0); HGB - HEMOGLOBIN 13.2 g/dL (12.0-16.0); LYMPHOCYTES # (AUTO) 1.2 10^3/uL (1.5-3.5); LYMPHOCYTES % (AUTO) 28.3 %; MEAN CORPUSCULAR HGB CONC 33.1 g/dL (32.0-36.0); MEAN CORPUSCULAR VOLUME 90.7 fL (81.0-99.0); MEAN PLATELET VOLUME 9.1 fL (7.9-10.8); MONOCYTES # (AUTO) 0.6 10^3/uL (0.0-1.0); MONOCYTES % (AUTO) 14.8 %; NEUTROPHILS # (AUTO) 2.1 10^3/uL (1.5-6.6); NEUTROPHILS % (AUTO) 51.5 %; PLT - PLATELET COUNT 276 10^3/uL (130-450); WHITE BLOOD COUNT 4.1 x10^3/uL (4.8-10.8)
[2023-05-31 16:38] LABS: ALBUMIN 4.1 g/dL (3.2-5.5); ALBUMIN/GLOBULIN RATIO 1.6 (1.0-2.2); BILIRUBIN,TOTAL 0.5 mg/dL (0.2-1.0); CREATININE 0.7 mg/dL (0.6-1.3); TOTAL PROTEIN 6.7 g/dL (6.4-8.9)
== END 2023-05-31 11:58 | disposition home or self-care (01) ==
LOC: LAB 11:57
PROVIDERS: ATTEND Nurse Practitioner Family
DX: M15.4 Erosive (osteo)arthritis (principal); Z79.60 Long term (current) use of unspecified immunomodulators and immunosuppressants
CPT/HCPCS: 36415; 80053; 85025; 86140

== ENCOUNTER 2023-06-22 10:44 | Outpatient (CLI) | payer MEDICARE, BC ==
[2023-06-22 10:56] LABS: BASOPHILS # (AUTO) 0.1 10^3/uL (0.0-0.1); BASOPHILS % (AUTO) 0.8 %; EOSINOPHILS # (AUTO) 0.1 10^3/uL (0.0-0.7); EOSINOPHILS % (AUTO) 1.8 %; HGB - HEMOGLOBIN 12.7 g/dL (12.0-16.0); LYMPHOCYTES # (AUTO) 1.5 10^3/uL (1.5-3.5); LYMPHOCYTES % (AUTO) 24.4 %; MEAN CORPUSCULAR HEMOGLOBIN 30.5 pg (27.0-31.0); MEAN CORPUSCULAR HGB CONC 32.6 g/dL (32.0-36.0); MEAN CORPUSCULAR VOLUME 93.5 fL (81.0-99.0); MEAN PLATELET VOLUME 9.2 fL (7.9-10.8); MONOCYTES # (AUTO) 0.7 10^3/uL (0.0-1.0); MONOCYTES % (AUTO) 10.8 %; NEUTROPHILS # (AUTO) 3.7 10^3/uL (1.5-6.6); PLT - PLATELET COUNT 255 10^3/uL (130-450); RED BLOOD COUNT 4.17 10^6/uL (4.20-5.40); RED CELL DISTRIBUTION WIDTH 13.7 % (12.0-15.0)
[2023-06-22 11:12] LABS: ALBUMIN 4.2 g/dL (3.2-5.5); BILIRUBIN,TOTAL 0.6 mg/dL (0.2-1.0); CALCIUM 10.3 mg/dL (8.5-10.3); CREATININE 0.8 mg/dL (0.6-1.3); POTASSIUM 3.8 mmol/L (3.5-4.5); TOTAL PROTEIN 6.3 g/dL (6.4-8.9)
--- NOTE | 2023-06-22 14:04 | XRAY Report ---
PROCEDURE: Chest 2V INDICATIONS: COUGH TECHNIQUE: 2 views of the chest were acquired. COMPARISON: 11/11/22. FINDINGS: Surgical changes and devices: Right upper quadrant surgical clips. Lungs and pleura: No pleural effusions or pneumothorax. Mild bibasilar opacites. Mediastinum: Mediastinal contours appear normal. Heart size is normal. Bones and chest wall: No suspicious bony lesions. Overlying soft tissues appear unremarkable. IMPRESSION: Mild bibasilar opacities, may represent atelectasis. This is similar in appearance compared to prior. No new focal pulmonary consolidations. Reviewed by: Josue Nunn MD on 06/22/2023 2:03 PM PDT Approved by: Josue Nunn MD on 06/22/2023 2:03 PM PDT Station ID: [id number]
== END 2023-06-22 10:45 | disposition home or self-care (01) ==
LOC: LAB 10:44
PROVIDERS: ATTEND Nurse Practitioner
DX: R05.3 Chronic cough (principal); R91.8 Other nonspecific abnormal finding of lung field
CPT/HCPCS: 36415; 80053; 85025

== ENCOUNTER 2023-07-17 14:47 | Outpatient (CLI) | payer MEDICARE, BC | END 2023-07-17 14:48 | disposition home or self-care (01) | LOC: RT 14:47 | PROVIDERS: ATTEND Nurse Practitioner | DX: R05.3 Chronic cough (principal) | CPT/HCPCS: 94010; 94727; 94729 ==

== ENCOUNTER 2023-07-20 07:43 | Outpatient (CLI) | payer MEDICARE, BC ==
[2023-07-20 08:05] LABS: CALCIUM 10.5 mg/dL (8.5-10.3); CREATININE 0.8 mg/dL (0.6-1.3); POTASSIUM 3.8 mmol/L (3.5-4.5)
== END 2023-07-20 07:44 | disposition home or self-care (01) ==
LOC: LAB 07:43
PROVIDERS: ATTEND Internal Medicine Cardiovascular Disease
DX: I10 Essential (primary) hypertension (principal)
CPT/HCPCS: 36415; 80048